=== PATIENT | female | born 1965 | race Caucasian/White ===

== ENCOUNTER → 2016-08-15 | Outpatient (CLI) | payer OTHER ==
--- NOTE | 2016-08-15 23:58 | REP ---
Clinical: Trauma. Technique: AP, lateral, bilateral oblique and sunrise views left knee . Findings: The osseous structures and joint spaces are intact and demonstrate mild age-related degenerative changes. There is no evidence for acute fracture or dislocation. No joint effusion is appreciated. Surrounding soft tissues are unremarkable. No subcutaneous emphysema or radiodense foreign body. Impression: Mild age-related degenerative changes. No acute fracture or dislocation. Signed by Richard Blanco MD 08/15/2016 11:51 P
== END ==
LOC: M RAD 20:02
PROVIDERS: ATTEND Physician Assistant
DX: M25.562 Pain in left knee (principal)